=== PATIENT | male | born 1975 | race Caucasian/White ===

== ENCOUNTER 2022-06-22 10:50 | Outpatient (CLI) | payer BC, SELFPAY | END 2022-06-22 10:51 | disposition home or self-care (01) | PROVIDERS: PCP Family Medicine; Visit Provider Family Medicine | DX: Z00.00 Encounter for general adult medical examination without abnormal findings (principal); Z13.6 Encounter for screening for cardiovascular disorders; F41.9 Anxiety disorder, unspecified; Z13.1 Encounter for screening for diabetes mellitus | CPT/HCPCS: 80048; 80061; 82105; 84704 ==

== ENCOUNTER 2022-07-06 08:18 | Outpatient (CLI) | payer BC, SELFPAY ==
--- NOTE | 2022-07-06 09:25 | W.ANESCHARGE ---
Anesthesia Charges Start Date/Time Anesthesia Start Date: 07/06/22 Anesthesia Start Time: 09:30 Stop Date/Time Anesthesia Stop Date: 07/06/22 Anesthesia Stop Time: 09:50
--- NOTE | 2022-07-06 09:51 | W.ANESCHARGE ---
Anesthesia Charges Start Date/Time Anesthesia Start Date: 07/06/22 Anesthesia Start Time: 09:30 Stop Date/Time Anesthesia Stop Date: 07/06/22 Anesthesia Stop Time: 09:50
== END 2022-07-06 08:19 | disposition home or self-care (01) ==
PROVIDERS: PCP Family Medicine; Visit Provider Internal Medicine
DX: Z12.11 Encounter for screening for malignant neoplasm of colon (principal); Z80.0 Family history of malignant neoplasm of digestive organs
CPT/HCPCS: 00812; 45378; J2704

== ENCOUNTER 2022-08-30 14:45 | Outpatient (CLI) | payer BC, SELFPAY ==
[2022-08-30] MEDS: PERFLUTREN LIPID MICROSPHERES 2 ML VIAL IV (15:27)
[2022-08-30 16:03] VITALS: BP 120/87; PULSE 101
--- NOTE | 2022-08-30 16:28 | W.PM.STED ---
Stress Test Note Date Date Seen: 08/30/22 Date of test: 08/30/22 Providers Primary care provider: Mayur Batista Stress test physician: Saray Ochoa Stress Test Note Stress test ordered: Stress Echo Indication for test: Chest pain, lightheadedness with exercise Stress test medicine: Def[place]en Results discussion: Resting EKG: Sinus tachycardia, 102 beats per minute. Incomplete right bundle branch. Resting blood pressure: 132/86 Stress test: Patient was exercised on the treadmill following standard Skinny protocol. Patient exercised for a duration of 7 minutes 12 seconds, stopping due to shortness of breath and reaching exercise capacity. He achieved 8.7 Mets at this level of activity. He had a maximum heart rate of 163 beats per minute which was 109% of a calculated target heart rate of 149. He had a maximal blood pressure during exercise of 180/102, giving a rate pressure product of 29,340. No ischemia or arrhythmia were noted. Patient did not have worsening chest pain during stress test. Echo images are pending. [employer] was used to obtain echo images. Impression: Subjectively negative, objectively negative EKG portion of this stress test, hypertensive response to exercise. Follow up suggested: Patient is discharged from his stress test in stable condition. He is aware that his primary provider will get the full updated report once the echo images are read. We did discuss goals for weight loss, heart healthy diet and exercise once cleared by his primary care provider.
== END 2022-08-30 14:46 | disposition home or self-care (01) ==
LOC: STRESS 14:46
PROVIDERS: PCP Family Medicine; Visit Provider Family Medicine
DX: R07.9 Chest pain, unspecified (principal)
CPT/HCPCS: 93016; 93325; 93351; Q9957

== ENCOUNTER 2023-05-23 10:34 | Outpatient (CLI) | payer BC, SELFPAY | END 2023-05-23 10:35 | disposition home or self-care (01) | PROVIDERS: PCP Family Medicine; Visit Provider Family Medicine | DX: R53.83 Other fatigue (principal); E23.0 Hypopituitarism; R79.89 Other specified abnormal findings of blood chemistry | CPT/HCPCS: 80048; 84403; 84443 ==

== ENCOUNTER 2023-07-17 08:45 | Outpatient (CLI) | payer BC, SELFPAY | END 2023-07-17 08:46 | disposition home or self-care (01) | LOC: NFLDREF 07-19 07:12 | PROVIDERS: PCP Family Medicine; Referring Provider Family Medicine; Visit Provider Family Medicine | DX: E78.2 Mixed hyperlipidemia (principal) | CPT/HCPCS: 80076 ==

== ENCOUNTER 2024-04-03 09:23 | Outpatient (CLI) | payer BC, SELFPAY | END 2024-04-03 09:24 | disposition home or self-care (01) | PROVIDERS: PCP Family Medicine; Visit Provider Family Medicine | DX: E29.1 Testicular hypofunction (principal); E23.0 Hypopituitarism; E78.2 Mixed hyperlipidemia; Z85.47 Personal history of malignant neoplasm of testis | CPT/HCPCS: 80048; 80061; 82105; 84403; 84704 ==

== ENCOUNTER 2024-05-20 10:41 | Outpatient (CLI) | payer BC, SELFPAY | END 2024-05-20 10:42 | disposition home or self-care (01) | LOC: FBOREF 10:43 | PROVIDERS: PCP Family Medicine; Visit Provider Family Medicine | DX: K43.2 Incisional hernia without obstruction or gangrene (principal) | CPT/HCPCS: 80048; 85025 ==

== ENCOUNTER 2024-05-28 08:21 | Day surgery (SDC) | payer BC, SELFPAY ==
[2024-05-28] VITALS (16 sets, daily range): BP systolic 124–152; BP diastolic 79–100; PULSE 73–90; RESP 14–16; TEMP 36.2–37.3; O2SAT 92–98; BMI 39.2
[2024-05-28] MEDS: LACTATED RINGERS 1000 ML 1,000 ML 100 ML IV ×2 (08:25→11:10)
[2024-05-28] MEDS: SODIUM CHLORIDE 0.9 % (FLUSH) 10 ML SYRINGE IVF (09:10)
--- NOTE | 2024-05-28 09:16 | SUR.OPER ---
PATIENT QUESTIONS ANSWERED SATISFACTORILY PREOPERATIVELY. PATIENT BROUGHT TO OR #1 PER CART. Patient positioned supine on OR #1 bed. The perioperative team supported arms bilaterally on arm boards. Final approval of positioning by surgeon.
[2024-05-28] MEDS: CEFAZOLIN 2 GM INJ IVP (09:52)
[2024-05-28] MEDS: BUPIVACAINE 0.25% 30 ML INJECTION (10:10)
--- NOTE | 2024-05-28 11:52 | P.ANES_ITS ---
Anesthesia Charges Start Date/Time Anesthesia Start Date: 05/28/24 Anesthesia Start Time: 09:35 Stop Date/Time Anesthesia Stop Date: 05/28/24 Anesthesia Stop Time: 13:01 Coding CPT Codes CPT Codes: ANESTH REPAIR OF HERNIA - 24145 ([id number]) P2 - PATIENT W/MILD SYST DISEASE, QK - ELECTRONIC DATA INTERCHANGE SPECIALIST 2-4 CNCRNT ANES PROC, QX - SHOE WORKER SVC W/ MD MED DIRECTION
--- NOTE | 2024-05-28 11:52 | W.ANESCHARGE ---
Anesthesia Charges Start Date/Time Anesthesia Start Date: 05/28/24 Anesthesia Start Time: 09:35 Stop Date/Time Anesthesia Stop Date: 05/28/24 Anesthesia Stop Time: 13:01 Coding CPT Codes CPT Codes: ANESTH REPAIR OF HERNIA - 60805 ([id number]) P2 - PATIENT W/MILD SYST DISEASE, QK - NITROGEN OPERATOR 2-4 CNCRNT ANES PROC, QX - MASON TENDER RESTORATION LABOR SVC W/ MD MED DIRECTION
[2024-05-28] MEDS: BACITRACIN OINTMENT BULK TUBE 1 APPLIC TOPICAL (12:47)
--- NOTE | 2024-05-28 13:01 | P.ANES_ITS ---
Anesthesia Charges Start Date/Time Anesthesia Start Date: 05/28/24 Anesthesia Start Time: 09:35 Stop Date/Time Anesthesia Stop Date: 05/28/24 Anesthesia Stop Time: 13:01 Coding CPT Codes CPT Codes: ANESTH REPAIR OF HERNIA - 77048 ([id number]) P2 - PATIENT W/MILD SYST DISEASE, QK - EMERGENCY MEDICAL TECHNICIAN/DRIVER 2-4 CNCRNT ANES PROC, QX - CONTACT CENTER SPECIALIST SVC W/ MD MED DIRECTION
--- NOTE | 2024-05-28 13:01 | W.ANESCHARGE ---
Anesthesia Charges Start Date/Time Anesthesia Start Date: 05/28/24 Anesthesia Start Time: 09:35 Stop Date/Time Anesthesia Stop Date: 05/28/24 Anesthesia Stop Time: 13:01 Coding CPT Codes CPT Codes: ANESTH REPAIR OF HERNIA - 21304 ([id number]) P2 - PATIENT W/MILD SYST DISEASE, QK - PATIENT ACCOUNT LIAISON 2-4 CNCRNT ANES PROC, QX - TACKING MACHINE OPERATOR SVC W/ MD MED DIRECTION
[2024-05-28] MEDS: fentaNYL 100 MCG/2 ML inj 50 MCG IVP ×3 (13:06→14:00)
[2024-05-28] MEDS: ACETAMINOPHEN 325 MG TABLET 650 MG PO (13:45)
[2024-05-28] MEDS: hydrOXYzine pamoate 25 MG CAPSULE PO (13:45)
[2024-05-28] MEDS: KETOROLAC 15 MG/ML inj IVP (13:55)
--- NOTE | 2024-05-28 14:11 | PM.GSPRC ---
Operative Note Date of procedure: 05/28/24 Pre-op diagnosis: 1. Incisional hernia 2. Vasectomy for sterilization Post-op diagnosis: 1. Incisional hernia, multiple present within the midline 2. Vasectomy desired for sterilization Type of Procedure: 1. Laparoscopic incisional hernia repair with placement of mesh 2. Extensive lysis of adhesions 3. Vasectomy Indications: Patient is a 49-year-old male who presented to clinic with a symptomatic hernia at a previous incision site. Different treatment options were discussed at length with the patient, please see consultation note for full discussion. Risks and benefits of operative intervention were discussed at length with the patient. Risks included but was not limited to: Bleeding, infection, risk of damage to surrounding structures, possible need for additional procedures, possible need to convert to an open operation and postoperative complications such as pneumonia, pulmonary emboli or IA. I also discussed with the patient a desire for vasectomy. We discussed that this is a form of permanent control. He has discussed this with his and has decided to pursue this for their primary form of control. Risks and benefits of the procedure were discussed at length. All questions and concerns were addressed with the patient agreeing to proceed with both procedures. Procedure Description: After discussing the risks and benefits of the procedure, the patient signed informed consent.? The operative site was marked and the patient was brought to the operating room and placed on the operating table in supine position.? Care was taken to pad the patient's pressure points.?? The patient was then intubated by anesthesia.?? The operative site was then prepped and draped in the usual sterile fashion.? A time-out was then performed. The abdomen was entered in the left upper quadrant via a 5 mm Visiport. CO2 was used to insufflate the abdomen, which was briefly surveyed with no evidence of injury. There were extensive abdominal adhesions in the midline. A 5 mm port was placed in the left lower quadrant under direct visualization. Using hook cautery and scissors when appropriate several adhesions were taken down in the lower abdomen. Once the lower pelvis was cleared an additional 12 mm port was placed in the right lower quadrant under direct visualization. Utilizing traction and hook cautery I continued to take down the midline adhesions. There was evidence of small-bowel within the adhesions supraumbilical, so care was taken to ensure that this was not injured during my dissection. 2 hours were required to lyse all of the midline adhesions. Some omental bleeding was evident during dissection, which was controlled with several 5 mm clips. Once the lysis of adhesions was complete I was able to examine the abdominal wall. There were 3 separate hernias within the midline. The largest hernia was supraumbilical and approximately 3 cm. Just inferior to that hernia was a 2 cm defect at the umbilicus and finally a small 1 cm hernia was present infraumbilical. The falciform ligament was partially taken down from the abdominal wall, to allow the mesh to lie flat and appropriately cover all defects. This was performed with cautery. A large piece of Ventralight ST Bard mesh with Echo PS was chosen to cover all defects. This measured 15 x 20 cm in size. The mesh was rolled and placed in the abdomen through the 12 mm port. Just above the umbilicus within the midline a small 2 mm incision was made with an 11 blade and the Jason-Rosendo used to grab the string of the positioning system and bring it up to the anterior abdominal wall. The mesh was positioned over all defects with at least a 2cm area of overlap at each site. The intra-abdominal pressure was then decreased to 10 mmHg. Absorbable tacks were used to create a double crown technique of 2 circumferential layers of tacks. Once this was completed the positioning system was removed through the 12 mm port in 1 piece. The 12 mm port was closed with an 0 Vicryl via the Jason-Rosendo. All other ports were removed under direct visualization. The laparoscopic port sites were then closed with 4-0 Monocryl and covered with Steri-Strips. We then prepped and draped for the vasectomy portion of the procedure. Patient had a history a right orchiectomy, so only the left testicle was present. The cord structures and vas deferens were easily palpated. Local anesthetic was used to infiltrate around the vas deferens. A small incision was made with a 15 blade scalpel. The vas deferens was then isolated and dissected free. Clips were placed distal and proximal and a 1 cm segment removed. This was passed off the back table to be sent for pathology. Hemostasis was ensured. The incision was closed with an interrupted 4-0 Monocryl. Sterile dressings were then applied. ? The patient was then woken and transported to the recovery area in stable condition. ? The patient tolerated the procedure well. Findings: Significant lysis of adhesions, 2 hours adding complexity to the case. Multiple abdominal wall hernias present and covered with a large piece of mesh. Left testicle present, left vasectomy performed. Anesthesia: GETA Surgeon: Sheila Smalls MD Estimated blood loss (mL): 15 Additional Specimen Information: 1. Left vas deferens Condition: stable Disposition: PACU
== END 2024-05-28 16:00 | disposition home or self-care (01) ==
LOC: OR 08:21
PROVIDERS: PCP Family Medicine; Visit Provider Surgery
PROC: 0WQF4ZZ Repair Abdominal Wall, Percutaneous Endoscopic Approach (ICD-10-PCS; CPT 49593; principal; 2024-05-28 09:30)
PROC: (CPT 55250; 2024-05-28 09:30)
DX: K43.2 Incisional hernia without obstruction or gangrene (principal); K66.0 Peritoneal adhesions (postprocedural) (postinfection); Z30.2 Encounter for sterilization
CPT/HCPCS: 49593; 55250; 44005; 00832; A9270; J0330; J0665; J0690; J1100; J1171; J1885; J2250; J2371; J2405; J2704; J3010; J3490; J7120; Q4100